=== PATIENT | male | born 1960 | race Caucasian/White ===

== ENCOUNTER 2018-12-07 11:29 | Inpatient (IN) ==
--- NOTE | 2018-12-06 22:51 | Discharge Summary ---
Date of Encounter: 12/09/18 - Discharge Diagnosis (1) Arthritis of left hip Priority: Primary Status: Chronic (2) Status post total hip replacement, left Priority: Primary Status: Acute (3) HTN (hypertension) Priority: Secondary Status: Chronic Qualifiers: Hypertension type: unspecified Qualified Code(s): I10 - Essential (primary) hypertension (4) Pulmonic valve insufficiency Priority: Secondary Status: Chronic Qualifiers: Cardiac valve disease etiology: etiology unspecified Qualified Code(s): I37.1 - Nonrheumatic pulmonary valve insufficiency (5) Pacemaker Priority: Secondary Status: Chronic (6) HLD (hyperlipidemia) Priority: Secondary Status: Chronic Qualifiers: Hyperlipidemia type: unspecified Qualified Code(s): E78.5 - Hyperlipidemia, unspecified (7) Paroxysmal A-fib Priority: Secondary Status: Chronic (8) Obesity Priority: Secondary Status: Chronic Qualifiers: Obesity type: unspecified obesity type Obesity classification: unspecified obesity classification Serious obesity comorbidity presence: unspecified whether serious comorbidity present Qualified Code(s): E66.9 - Obesity, unsp ecified - Hospital Course Hospital course: Mr. Medley is a 58 year old male Date of procedure: 12/07/18 Pre-op diagnosis: Left hip arthritis Post-op diagnosis: same Procedure: Left Total Hip Replacment robotic-assisted Patient discharged home with home health therapy and outpatient follow up - Time Spent with Patient Total time spent providing and/or coordinating discharge services: - Discharge Medications Prescriptions: New Aspirin Enteric Coated [Aspirin EC] 325 mg PO BID 10 Days #20 tablet. OxyCODONAsha Immed Rel [Roxicodone 5 MG] 5 mg PO Q6HR PRN 5 Days #20 tablet PRN Reason: Severe Pain Continue Lisinopril [Zestril] 5 mg PO DAILY Diltiazem CD (24hr) [Cardizem CD] 120 mg PO DAILY Metoprolol Succinate [Toprol Xl] 100 mg PO BID Meloxicam 15 mg PO DAILY Atorvastatin Calcium [Lipitor] 20 mg PO HS Discontinued Aspirin [Adult Aspirin] 81 mg PO DAILY Home Medications: Aspirin Enteric Coated [Aspirin EC] 325 mg PO BID 10 Days #20 tablet. 12/06/18 [Rx] Diltiazem CD (24hr) [Cardizem CD] 120 mg PO DAILY 12/07/18 [History] Lisinopril [Zestril] 5 mg PO DAILY 12/07/18 [History] Metoprolol Succinate [Toprol Xl] 100 mg PO BID 12/07/18 [History] Atorvastatin Calcium [Lipitor] 20 mg PO HS 12/08/18 [History] Meloxicam 15 mg PO DAILY 12/08/18 [History] OxyCODONE Immed Rel [Roxicodone 5 MG] 5 mg PO Q6HR PRN 5 Days #20 tablet 12/09/18 [Rx] Allergies/Adverse Reactions: Allergy/AdvReac Type Severity Reaction Status Date / Time No Known Allergies Allergy Verified 12/08/18 12:07 Date of admission: 12/07/18 Primary care physician: Fortunato Bhardwaj MD Discharging clinician: Michael Montoya Anticipated date of discharge: 12/09/18 - Patient Status Disposition: Home Health Service - Discharge Instructions Follow Up With: Maggy Nelson PAC [Physician Software Deployment Engineer] - 12/17/18 10:00 am Michael Montoya MD [Partnered Physician] - 01/06/19 5:05 pm Sabino Rao MD [Partnered Physician] - 12/16/18 11:45 am Fortunato Bhardwaj MD [Primary Care Provider] - Additional Instructions: Discharge Instructions: Total Hip Replacement Please call [facility] ([phone]), your Primary Care Physician, or report to the Emergency Room if you have any of the following symptoms: Nausea, vomiting, fever greater that 101.5, swelling, chest pain, shortness of breath, increased pain/redness/drainage/odor for your incision site, numbness/tingling, or any other concerning symptoms. ACTIVITY:Weight-bearing as tolerated for 8 weeks with hip dislocation precautions that physical therapy taught you. You may progress as tolerated under the guidance of your physical therapist. You do not need to sleep with a pillow between your legs. You can also seep on the operative side or on your stomach. Incentive Spirometer 10 times an hour. MEDICATIONS: Upon discharge resume your home medications. Take all the medications as prescribed. Take a stool softener if taking narcotic pain medications. Stool softeners are only effective if you drink enough fluids. Drink 6-8 glass of water or fluids a day, unless this is not allowed for another health problem. Despite using stool softeners, if you haven't had a bowel movement in 3 days, please switch to a gentle laxative. Gentle laxatives are sold over the counter. You should have a bowel movement within 24 hours, if not call the office. You will be discharged from the hospital with a prescription for pain medication. You are encouraged to decrease the use of narcotic pain medication as tolerated. Should you require a refill, please call the office. [facility] prescribes narcotic pain medication for only 4-6 weeks after surgery. If you require pain medication beyond this time period, you may be referred to your Primary Care Physician or to the Pain Clinic for further evaluation. Plan ahead for refills on pain medication as many narcotics either need to be picked up at the office or mailed. It is best to call 48-72 hours in advance of needing a prescription refill so you don't run out of medication. To help control the post-operative pain, you may take NSAIDs (Aleve,Advil, Motrin, ibuprofen, naprosyn) or Tylenol as prescribed on the bottle in addition to the pain medication. ANTICOAGULATION (blood thinners): Continue your Aspirin, Lovenox or Coumadin as prescribed to help prevent a blood clot in the leg or in the lungs. As long as your incision remains dry and you tolerate the NSAIDs (Aleve, Advil, Motrin, Ibuprofen, Naprosyn), it is OK to use the NSAIDS while you are taking your anticoagulation medication. Should your incision start to drain, stop the NSAID and contact our office. Common symptoms of blood clot in the legs include: localized pain, swelling, calf tenderness, redness or discoloration of the skin. Blood clot in the lung symptoms include: shortness of breath, rapid pulse, sweating, and chest pain that worsens with deep breathing, coughing up blood, lightheadedness, feelings of anxiety. If you experience any of these symptoms notify your physician immediately, go to the emergency room, or if having trouble breathing, call 911. WOUND CARE: Leave the dressing on for 7 to 10days. You may change the dressing if it is saturated greater than 50%. Do not get the dressing wet at anytime. Wash your hands with antibacterial soap, rinse and dry prior to any wound care. If you have milton the visiting nurse or rehab facility can remove the stapes 10-14 days after surgery and place steri-strips across the wound. Leave the steri-strips in place until they fall off on their own. You may let water from the shower run on top of the steri-strips. If you do not have a visiting nurse or rehab facility, you will need to return to the office at 10-14 days for the milton to be removed. If you have itching or redness around the dressing call the office. FOLLOW-UP: Please follow up with your surgeon in the orthopedic clinic in 6 weeks from the day of surgery. If you have milton that need to be removed, you will need to come back to the office in 10-14 days from the day of surgery.
--- NOTE | 2018-12-07 08:32 | Anesthesia Evaluation PreOp ---
Date of Encounter: 12/07/18 Time of Encounter: 12:04 - Past History Planned Operation: Left Total Hip Arthroplasty Cardiac History: HTN, Hyperlipidemia, Arrhythmia (H/O A-Fib), Cardiac Surgery (pulmonic valve replacement), Pacemaker/ICD (Medtronic pacemaker) Pulmonary History: Denies Any Significant HX, Snore WARRANT CLERK History: Denies Any Significant HX Other Medical History: Diabetes Type II (borderline) Anesthesia History: No Prior Anesthetic Complications, Past Anesthesia Alcohol Use: none Drug use: none Medications and Allergies Aspirin Enteric Coated [Aspirin EC] 325 mg PO BID 10 Days #20 tablet. 12/06/18 [Rx] Docusate Sodium [Colace] 100 mg PO BID 5 Days #10 capsule 12/06/18 [Rx] OxyCODONE Immed Rel [Roxicodone 5 MG] 5 mg PO Q6HR PRN 5 Days #20 tablet 12/06/18 [Rx] Allergy/AdvReac Type Severity Reaction Status Date / Time No Known Allergies Allergy Verified 12/01/18 09:37 - Meds/Allergy Pre-op Review Medications Reviewed: Yes Allergies Reviewed: Yes Beta Blockers on Current Med List: Yes If Beta Blockers taken, Date/Time (Last Dose taken): 12/06/2018 at 1900 Anesthesia Results - Labs Laboratory Tests 12/01/18 12/01/18 12/01/18 10:35 10:35 10:35 WBC 9.0 Hgb 14.1 Hct 43.9 Plt Count 262 PT 11.6 INR 1.0 APTT 29.9 Sodium 139 Potassium 4.3 BUN 22 H Creatinine 0.98 - Imaging EKG: report reviewed (12/03/2017 electronic ventricular pacemaker) Additional studies: 12/04/2018 Stress Impression: Pharmacologic stress ECG is non-diagnostic for ischemia due to paced rhythm. Gated EF = 59%. Medium sized, moderate intensity, primarily fixed inferoseptal, all apical segments, and apex defect. A prior infarct cannot be excluded. Minimal reversiblilty involving the apex, apical inferior, and apical lateral segments suggestive of mild lito-infarct ischemia. 11/25/2013 Echo normal LV size, LVEF 50-55% septal wall mildly hypokinetic grossly normal RV size and function trivial MR and TR pulmonic valve is bioprosthetic pacemaker wires are noted Anesthesia Exam O2 Sat Height 1.85 m Height 1.85 m Weight 117.934 kg Weight 117.934 kg O2 Sat by Pulse Oximetry 97 Vital Signs Temp Pulse Resp BP Pulse Ox 98.4 F 84 18 127/79 97 12/07/18 12:31 12/07/18 12:31 12/07/18 12:31 12/07/18 12:31 12/07/18 12:31 Height: 6'1'' Weight: 260 lbs NPO (# of Hours): 8 Pain Scale: 0 Pain Scale Used: Numeric (1 - 10) - HEENT Pupil (Motor): EOMI Mallampati: III Teeth: Normal Oral Opening: Greater than 3 - WARRANT CLERK LOC: Oriented WARRANT CLERK Motor: Normal RUE, Normal LUE, Normal RLE, Normal LLE, Normal Face WARRANT CLERK Sensory: Normal: RUE, LUE, RLE, LLE, Face - Cardiac Rhythm: Regular Murmur: None - Pulmonary Breath Sounds: bilateral Clear Respiratory Effort: Symmetrical Anesthesia Assess/Plan ASA Score: 3 Level of consciousness: Cooperative, Oriented, Tranquil Anesthetic Plan: Spinal Monitoring Plan: Standard Monitors Recovery Plan: PACU
--- NOTE | 2018-12-07 11:44 | History & Physical Report ---
Date of Encounter: 12/07/18 Time of Encounter: 11:44 24 Hour HP Update - Instructions Instructions: If the History and Physical is less than 30 days old and was completed prior to A.M. admission and or procedure and has NOT been updated on calendar day of procedure please complete this update prior to performing procedure. - Update Patient reports changes in Medical Condition: No Changes in examination, assessment, or condition: No Changes in Medication: No Preop tests/diagnostics Reviewed: Yes Surgery Remains Indicated: Yes Consent for Planned Operative Procedure(s) Verified: Yes - Pre-Operative Checklist Preoperative Checklist Indicated: No Prophylactic Antibiotic Ordered: Yes Is VTE Prophylaxis Indicated?: Yes
[2018-12-07] MEDS ORDERED: CeFAZolin Syr 2,000MG/20 ML 2,000 MG/20 ML SYRINGE IVPB ONE (11:58)
[2018-12-07] MEDS ORDERED: Ringers Solution, Lactated 1,000 ML IVC SCH ×2 (12:00→17:02)
[2018-12-07] MEDS ORDERED: Ethanol\\Acetic Acid\\Na Ace\\Ben 1,000 ML IRRIG.SOLN IR ONE (12:13)
[2018-12-07] MEDS ORDERED: *HR* Midazolam HCl 2 MG/2 ML VIAL ONE (12:16)
[2018-12-07] MEDS ORDERED: *HR* FentaNYL (PF) 100 MCG/2 ML VIAL ONE (12:16)
[2018-12-07] MEDS ORDERED: Propofol 500 MG/50 ML INFUS..BTL ONE (12:19)
[2018-12-07] MEDS ORDERED: Celecoxib 200 MG CAPSULE PO ONE (12:31)
[2018-12-07] MEDS ORDERED: Gabapentin 300 MG CAPSULE PO ONE (12:31)
[2018-12-07] MEDS ORDERED: *HR* HYDROmorphone (PF) 1 MG/ML SYRINGE IVP PRN (12:45)
[2018-12-07] MEDS ORDERED: *HR* OxyCODONE Immed Rel 5 MG TABLET PO PRN ×2 (12:45→17:02)
--- NOTE | 2018-12-07 13:09 | Anesthesia Procedures ---
Date of Encounter: 12/07/18 Time of Encounter: 13:02 Procedures: Anesthesia - Epidural/Spinal Patient ID/Chart reviewed: Yes Patient examined: Yes Consent Obtained: Yes Supplemental Oxygen: Nasal Cannula Supplemental Oxygen Rate (L/min): 2 Sedation: Versed (mg): 2 Sedation: Fentanyl (mcg): 100 Site Prep: Aseptic Technique, Sterile prep and drape, 0.5% Chlorhexidine/Alcohol Patient position: upright Local Anesthetic: Lidocaine 1% Amount of Local Anesthetic used: 2 Interspace Used: L2-L3 Blood: No CSF: Yes Paresthesia: No Spinal Needle Gauge: 24 Spinal Dose: 2ml 0.5% bupivacaine pf Procedure: left robo JACQUELINE Vitals + FHT's: VSS Vital Signs/O2 Sat/Glucose, Most Recent Temp Pulse Resp BP Pulse Ox 98.4 F 84 18 127/79 97 12/07/18 12:31 12/07/18 12:31 12/07/18 12:31 12/07/18 12:31 12/07/18 12:31
[2018-12-07] MEDS ORDERED: Tranexamic Acid 1,000 MG/10 ML VIAL ONE (13:19)
[2018-12-07] MEDS ORDERED: *HR* PHENYLEPHRINE 1,000 MCG/10 ML SYRINGE IVP ONE ×2 (13:20→13:54)
[2018-12-07] MEDS ORDERED: Ondansetron 4 MG/2 ML VIAL ONE (13:28)
[2018-12-07] MEDS ORDERED: Dexamethasone 4 MG/ML VIAL ONE (13:28)
[2018-12-07] MEDS ORDERED: *HR* Propofol 200 MG/20 ML VIAL IVP ONE (13:58)
--- NOTE | 2018-12-07 14:09 | Orthopedic Operative Note ---
Date of procedure: 12/07/18 Pre-op diagnosis: Left hip arthritis Post-op diagnosis: same Procedure: Procedure: Left Total Hip Replacment robotic-assisted Estimated blood loss: 200 cc Hardware: Metal and polyethylene replacement. Horacio DM Cup: 58 cup Femoral size 9 stem Head: 12 head with Tiffany Procedural Notes: 2 mm short operative versus nonoperative patient with bilateral hip disease. Grade 4 arthritic changes femoral head acetabular socket, procedure performed with robotic assistance. Operative procedure: The patient was brought to the operating room and placed on the operating room table. After general anesthesia was administered the patient was placed in the lateral decubitus position with the operative leg up. All pressure points were padded appropriately and the head was stabilized in the neutral position. The operative extremity was prepped and draped in the sterile surgical fashion patient received IV antibiotic prior to skin incision. 3 Steinmann pins were placed in the iliac crest 3 cm proximal to the anterior superior iliac spine this was for the robotic-assisted sensor. This was done through a small 2 cm incision. A standard posterior approach is made to the operative hip, the incision was made through the skin and subcutaneous tissue hemostasis was obtained with Bovie cautery. Using careful sharp dissection the fascia was identified and incised exposing the external rotators. The greater trochanter was marked, and length was measured at this time utilizing robotic assistance. The external rotators were released off the greater trochanter and tagged with #2 FiberWire suture. The capsule was T'd open and the hip was brought into internal rotation. Patient noted to have grade 4 arthritic changes femoral head. The femoral neck cut was made at the appropriate level roughly 15 mm proximal to the lesser trochanter aced on preoperative templating. An anterior capsulotomy was performed for the anterior retractor. Soft tissues removed from the acetabulum. Patient noted to have grade 4 arthritic changes acetabulum. The acetabulum reference point was confirmed. The acetabulum was then mapped with robotic assistance. Based on the preoperative plan the acetabulum was reamed in one step with a 58 reamer. The 58 acetabulum was impacted with robotic assistance and 39 degrees of abduction and 14 degrees of anteversion. The hip was brought back in to internal rotation and prepared with the box maker followed by the canal finder followed by the reaming process to a size 9/10 broaching process in 20 degrees anteversion. It was broached up to the appropriate size 9 Trial reduction revealed leg lengths close to normal. The femoral implant was impacted in place in 20 degrees of anteversion. Trial reduction found the hip to be stable with 12 head and Tiffany. The trials were removed and the real implants were impacted in place. The hip was reduced, patient had robotic confirmed leg length of 12 mm longer than the contralateral side. The hip had excellent stability with forward flexion to 90 degrees adduction of 30 degrees and internal rotation of 60 degrees. The hip had no shuck. The hip sat with an antibacterial solution. It was irrigated out with 2 L of pulse irrigation. The Steinmann pins were removed. The hip was closed by the PA. The deep tissue was irrigated and closed deep with #1 PDS suture superficially with 0 PDS suture and skin was closed with Dermabond and zip tie. The patient was placed in a sterile dressing and abduction pillow. The patient was extubated and transferred to the recovery room in stable condition. Anesthesia: spinal Surgeon: Michael Montoya Was there an assistant store manager operations present: No Estimated blood loss (cc): 200 Condition: stable Disposition: PACU
[2018-12-07 15:24] LABS: Hematocrit 39.5 % (37.5-50.1); Hemoglobin 12.7 g/dL (12.9-16.9)
[2018-12-07] MEDS ORDERED: Ondansetron 4 MG/2 ML VIAL IVP PRN (17:02)
[2018-12-07] MEDS ORDERED: MOM Conc 10 ML UD.LIQ PO PRN (17:02)
[2018-12-07] MEDS ORDERED: *HR* Promethazine 25 MG/ML VIAL IVP PRN (17:02)
[2018-12-07] MEDS ORDERED: traMADol 50 MG TABLET PO PRN (17:02)
[2018-12-07] MEDS ORDERED: Temazepam 15 MG CAPSULE PO PRN (17:02)
[2018-12-07] MEDS ORDERED: Sennosides 8.6 MG TABLET PO PRN (17:02)
[2018-12-07] MEDS ORDERED: *HR* Enoxaparin 30 MG/0.3 ML SYRINGE SQ SCH (18:00)
[2018-12-07] MEDS: Ascorbic Acid 500 MG TABLET PO SCH (18:21)
[2018-12-07] MEDS: *HR* Enoxaparin 30 MG/0.3 ML SYRINGE SQ SCH (18:21)
[2018-12-07] MEDS: Metoprolol XL (24 HR) Succ 50 MG TAB.ER.24H PO SCH (20:30)
[2018-12-08] MEDS: *HR* OxyCODONE/APAP 5/325 TABLET PO PRN ×3 (03:34→16:15)
[2018-12-08] MEDS: *HR* Enoxaparin 30 MG/0.3 ML SYRINGE SQ SCH ×2 (06:05→16:11)
--- NOTE | 2018-12-08 06:44 | Orthopedics Progress Note ---
Date of Encounter: 12/08/18 Time of Encounter: 06:43 Subjective Interval history: Patient was seen this morning doing well without complaints. Afebrile vital signs stable. Operative extremity: Neurovascularly intact Dressing clean dry and intact Calves nontender Assessment and plan: Continue with postoperative care Hematocrit 39 Objective Vital signs: Vital Signs Temp Pulse Resp BP Pulse Ox 12/08/18 06:35 98.4 F 75 18 152/80 96 12/08/18 04:07 98.5 F 65 16 133/73 95 12/08/18 00:09 97.7 F 65 16 122/71 95 12/07/18 19:42 97.5 F L 64 16 131/83 97 12/07/18 17:10 97.5 F L 68 16 128/78 97 12/07/18 16:47 97.1 F L 68 14 129/70 100 12/07/18 16:17 97.1 F L 61 16 113/70 99 12/07/18 15:47 97.5 F L 61 16 116/76 99 12/07/18 15:37 97.4 F L 61 18 114/68 99 12/07/18 15:27 61 16 106/72 99 12/07/18 15:17 65 14 113/71 98 12/07/18 15:07 97.1 F L 64 14 110/68 98 12/07/18 14:57 63 16 106/57 97 12/07/18 14:47 62 14 91/71 97 12/07/18 14:37 98.6 F 67 10 99/64 95 12/07/18 13:15 66 124/74 99 12/07/18 12:51 73 132/82 98 12/07/18 12:31 98.4 F 84 18 127/79 97 Intake and Output 12/07/18 12/07/18 12/08/18 15:59 23:59 07:59 Intake Total 20 / 20 940 / 940 1200 / 1200 Output Total 200 / 200 800 / 800 1300 / 1300 Balance -180 / -180 140 / 140 -100 / -100 Intake: IV Fluids 20 / 20 100 / 100 Ancef Syringe 2,000 MG/20 ML 2, 20 / 20 000 mg In 20 ml @ 200 mls/hr IVPB PREOP ONE Rx#:[id number] Ancef 2,000 MG In 0.9 % Sodium 100 / 100 Chloride 100 ML @ 200 mls/hr IVPB Q8HR [facility] Rx#:[id number] Oral 840 / 840 1200 / 1200 Output: Urine 800 / 800 1300 / 1300 Estimated Blood Loss 200 / 200 Other: Meal Dinner Percent of Meal Consumed 100% Weight 117.934 kg 118.46 kg Patient Weight 12/08/18 23:59 Weight 118.46 kg - Labs CBC & BMP: 12/07/18 14:58 Labs: Abnormal lab results Hgb 12.7 g/dL (12.9-16.9) L 12/07/18 14:58 Consult Discharge Plan - Plan Referrals: Fortunato Bhardwaj MD [Primary Care Provider] -
[2018-12-08 08:04] LABS: BUN/Creatinine Ratio 21 (6-26); Blood Urea Nitrogen 16 mg/dL (6-20); Carbon Dioxide 26 mEq/L (23-29); Chloride 104 mEq/L (98-107); Glucose 199 mg/dL (70-105); Osmolality,Calculated 289 (280-300); Potassium 3.8 mEq/L (3.5-5.1); Sodium 136 mEq/L (136-145); eGFR For Non-African Americans > 60 (> 60)
--- NOTE | 2018-12-08 08:42 | Event Note ---
Date of Encounter: 12/08/18
[2018-12-08] MEDS: Ascorbic Acid 500 MG TABLET PO SCH ×2 (08:52→16:10)
[2018-12-08] MEDS: Metoprolol XL (24 HR) Succ 50 MG TAB.ER.24H PO SCH ×2 (08:52→19:55)
[2018-12-08] MEDS: Diltiazem CD (24hr) 120 MG CAPSULE PO SCH (08:52)
[2018-12-08] MEDS: Multivit/Ca/Min/Fe/FA 1 TAB TABLET PO SCH (08:53)
[2018-12-08] MEDS: Aspirin Enteric Coated 81 MG Tablet PO SCH (08:53)
[2018-12-08 09:06] LABS: Basophils % 0.1 %; Hematocrit 40.3 % (37.5-50.1); Hemoglobin 13.1 g/dL (12.9-16.9); Immature Granulocytes % 0.6 % (0-4); Lymphocytes # 0.6 K/mcL (0.6-4.6); Lymphocytes % 4.4 %; Mean Corpuscular HGB Conc 32.5 g/dL (31.6-35.5); Mean Corpuscular Hemoglobin 29.7 pg (28.0-33.3); Mean Corpuscular Volume 91.4 fL (83.0-100.0); Mean Platelet Volume 10.2 fL (9.4-12.4); Monocytes # 0.7 K/mcL (0.0-1.3); Monocytes % 5.5 %; Neutrophils # 12.1 K/mcL (1.6-8.9); Platelet Count 275 K/mcL (140-400); Red Blood Count 4.41 M/mcL (4.19-5.50); Red Cell Distribution Width 13.7 % (11.5-14.5); Segmented Neutrophils % 89.4 %
--- NOTE | 2018-12-08 16:12 | Physician Discharge Referral ---
Home Health/Hosp Referral Info Transfer to: Home Health Attending Provider: Jan - Diagnosis (1) Status post total hip replacement, left Priority: Primary Status: Acute (2) Arthritis of left hip Priority: Primary Status: Chronic (3) HLD (hyperlipidemia) Priority: Secondary Status: Chronic (4) HTN (hypertension) Priority: Secondary Status: Chronic (5) Obesity Priority: Secondary Status: Chronic (6) Pacemaker Priority: Secondary Status: Chronic (7) Paroxysmal A-fib Priority: Secondary Status: Chronic (8) Pulmonic valve insufficiency Priority: Secondary Status: Chronic - Respiratory Orders None Smoking Cessation: Smoking cessation has been advised. For more information, call the [place] Tobacco Quit Line at 9-824-APCX-NOW. - Diet/Nutrition Diet/Nutrition Orders: Regular - Activity Activity Orders: Ambulate, Chair, Walker - Services Needed Following services are medically necessary services: Nursing, Home Health Aide, Physical Therapy, Occupational Therapy Home Care Orders: Opsite dressing, leave intact until first post-operative visit. If dressing becomes >50% saturated, contact office, remove dressing and place appropriate dressing in its place. Do not allow for dressing to get wet. Zipline/[place] in place, plan to remove at post-operative day #14-16. Total Joint Precautions x 6 weeks Apply cold therapy wrap 3-6x/day for 20 minutes at a time. Encourage ambulation throughout the day Use Incentive spirometer 10x/hour. Elevate affected extremity above heart as tolerated. Brace: Wear hip abductor brace at night x 6 weeks. - Transfer Medications Home Medications: Aspirin Enteric Coated [Aspirin EC] 325 mg PO BID 10 Days #20 tablet. 12/06/18 [Rx] Aspirin [Adult Aspirin] 81 mg PO DAILY 12/07/18 [History] Diltiazem CD (24hr) [Cardizem CD] 120 mg PO DAILY 12/07/18 [History] Lisinopril [Zestril] 5 mg PO DAILY 12/07/18 [History] Metoprolol Succinate [Toprol Xl] 100 mg PO BID 12/07/18 [History] Atorvastatin Calcium [Lipitor] 20 mg PO HS 12/08/18 [History] Meloxicam 15 mg PO DAILY 12/08/18 [History] Allergies/Adverse Reactions: Allergy/AdvReac Type Severity Reaction Status Date / Time No Known Allergies Allergy Verified 12/08/18 12:07 Certification: Further, I certify that my clinical findings support that this patient is homebound (i.e. absences from home require considerable and taxing effort and are for medical reasons or congregation services or infrequently or short duration when for other reasons) because: Homebound Reason: Post-surgery restriction and or conditions limit ability to leave home Attestation: My signature below is to certify that this patient is under my care and that I, or nurse practitioner, or a physician hospital nursing assistant working with me, has a [id number] encounter with this patient.
[2018-12-09 03:46] LABS: Basophils % 0.3 %; Eosinophils % 0.3 %; Hematocrit 36.5 % (37.5-50.1); Immature Granulocytes % 0.6 % (0-4); Lymphocytes # 2.1 K/mcL (0.6-4.6); Lymphocytes % 19.3 %; Mean Corpuscular HGB Conc 32.9 g/dL (31.6-35.5); Mean Corpuscular Hemoglobin 29.9 pg (28.0-33.3); Monocytes # 1.2 K/mcL (0.0-1.3); Monocytes % 10.6 %; Neutrophils # 7.6 K/mcL (1.6-8.9); Platelet Count 228 K/mcL (140-400); Red Blood Count 4.01 M/mcL (4.19-5.50); Red Cell Distribution Width 14.2 % (11.5-14.5); Segmented Neutrophils % 68.9 %
[2018-12-09 03:52] LABS: BUN/Creatinine Ratio 21 (6-26); Blood Urea Nitrogen 16 mg/dL (6-20); Calcium 8.8 mg/dL (8.6-10.3); Carbon Dioxide 26 mEq/L (23-29); Chloride 107 mEq/L (98-107); Glucose 123 mg/dL (70-105); Osmolality,Calculated 291 (280-300); Potassium 4.3 mEq/L (3.5-5.1); Sodium 139 mEq/L (136-145); eGFR For Non-African Americans > 60 (> 60)
[2018-12-09] MEDS: *HR* Enoxaparin 30 MG/0.3 ML SYRINGE SQ SCH (05:27)
[2018-12-09] MEDS: *HR* OxyCODONE/APAP 5/325 TABLET PO PRN ×2 (05:27→13:50)
--- NOTE | 2018-12-09 06:47 | Orthopedics Progress Note ---
Date of Encounter: 12/09/18 Time of Encounter: 06:47 Subjective Interval history: Patient was seen this morning doing well without complaints. Afebrile vital signs stable. Operative extremity: Neurovascularly intact Dressing clean dry and intact Calves nontender Assessment and plan: Continue with postoperative care Hematocrit 36 discharged today Objective Vital signs: Vital Signs Temp Pulse Pulse Resp BP Pulse Ox 12/08/18 23:53 98.3 F 63 17 152/78 95 12/08/18 19:02 98.0 F 80 16 144/83 96 12/08/18 15:31 98.0 F 65 20 124/58 95 12/08/18 11:02 98.8 F 70 16 132/71 95 12/08/18 08:45 2 Intake and Output 12/08/18 12/08/18 12/09/18 15:59 23:59 07:59 Intake Total 360 / 360 1780 / 1780 Output Total 400 / 400 1450 / 1450 1050 / 1050 Balance -40 / -40 330 / 330 -1050 / -1050 Intake: Oral 360 / 360 1780 / 1780 Output: Urine 400 / 400 1450 / 1450 1050 / 1050 Other: Meal Lunch Dinner Percent of Meal Consumed 100% 100% - Labs CBC & BMP: 12/09/18 03:23 12/09/18 03:23 Labs: Abnormal lab results RBC 4.01 M/mcL (4.19-5.50) L 12/09/18 03:23 Hgb 12.0 g/dL (12.9-16.9) L 12/09/18 03:23 Hct 36.5 % (37.5-50.1) L 12/09/18 03:23 Glucose 123 mg/dL (70-105) H 12/09/18 03:23 Consult Discharge Plan - Plan Referrals: Fortunato Bhardwaj MD [Primary Care Provider] -
[2018-12-09] MEDS: Metoprolol XL (24 HR) Succ 50 MG TAB.ER.24H PO SCH (08:33)
[2018-12-09] MEDS: Diltiazem CD (24hr) 120 MG CAPSULE PO SCH (08:34)
[2018-12-09] MEDS: Ascorbic Acid 500 MG TABLET PO SCH (08:34)
[2018-12-09] MEDS: Multivit/Ca/Min/Fe/FA 1 TAB TABLET PO SCH (08:34)
[2018-12-09] MEDS: Aspirin Enteric Coated 81 MG Tablet PO SCH (08:34)
[2018-12-09 11:23] VITALS: BP 131/74
== END 2018-12-09 14:30 | disposition home health service (06) | DRG 470 ==
LOC: SAMDAY 11:29 → 3NENU 17:03
PROVIDERS: ADMIT Orthopaedic Surgery; ATTEND Orthopaedic Surgery